=== PATIENT | female | born 1995 | race Caucasian/White ===

== ENCOUNTER 2017-12-23 14:02 | Emergency (ER) | payer MEDICAID, SELFPAY ==
[2017-12-23 14:03] VITALS: BP 130/78; PULSE 131; RESP 16; TEMP 36; O2SAT 99; BMI 24.5
[2017-12-23] MEDS: Ondansetron 4 MG/2 ML Vial IV (14:27)
[2017-12-23] MEDS: 0.9% Normal Saline 1,000 ML 1000 ML IV (14:28)
[2017-12-23 14:30] LABS: Absolute Neutrophil Count 5.3 X10^3/uL (2.0-7.7); Basophil# 0.04 X10^3/uL; Basophil% 0.5 % (0-1); Eosinophil# 0.01 X10^3/uL; Eosinophils% 0.1 % (0-5); Hemoglobin 15.3 g/dl (12.0-15.0); Mean Corp Hgb Conc 33.3 g/gl (32-36); Mean Corpuscular Hgb 29.4 pg (27.0-32.0); Mean Corpuscular Volume 88.3 fL (81-99); Mean Platelet Vol. 9.8 fl (6.2-12.0); Monocyte# 0.95 X10^3/uL; Monocyte% 12.5 % (0-10); Neutrophil % 69.5 % (47-70); POSITIVE COUNT NO; POSITIVE DIFFERENTIAL NO; POSITIVE MORPHOLOGY NO; Platelet Count 379 K/mm3 (150-450); RBC Distribution Width CV 13.1 % (11.6-14.6); RBC Distribution Width SD 42.4 fl (35.1-43.9); Red Blood Count 5.21 M/mm3 (4.2-5.4); White Blood Count 7.6 K/mm3 (4.4-11.0)
--- NOTE | 2017-12-23 14:32 | ED.VISSUMM ---
- ER Visit Summary Date of Service: 12/23/17 Chief Complaint: [] Vomiting IV drug use History of Present Illness: The patient is a 22 F [] given IV drug use she indicates she was sober than a week or 2 ago she did heroin again she states for the last 3 or 4 days she has had copious vomiting some diarrhea, she indicates it is not uncommon for her to develop vomiting diarrhea she does not feel that she is withdrawing as she has not had heroin for at least 2 weeks she is followed by the [address] [place] [address] she has been on Suboxone the past she denies any history of infection immunocompromised conditions or other disorders related to the heroin abuse other than recently she was told she had hep C and I explained to her that our therapies for hep C and she should obtain that through the [facility] where she seen he also has a history of hypokalemia and she has been on potassium supplements in the past Physical Examination: [] Heart rate is 130 she feels nauseated she is in no distress HEENT exam is unremarkable neck is supple lungs are tachycardic to 130 the abdomen soft nontender upper lower extremities unremarkable except she has multiple injection shot sites none of them are inflamed or show signs of active infection neurologically is awake moving all 4 again she denies abdominal pain Test Results: [] Emergency Department Course and Treatment: [] Screening labs IV fluids these are generally unremarkable see the reports she is taking p.o. fluids he received IV fluids her potassium was 2.3 she is taking oral potassium without difficulty she indicates she has a history of hypokalemia is much improved she has had no vomiting or diarrhea while she has been in the emergency department her heart rate is about 90 I explained all the test results to her she wants to go home she will be placed on Zofran potassium 20 mg once a day she will follow-up with her clinic, the [facility] detox clinic and return for change in symptoms bland diet force fluids avoid drug use, she clearly understands that persistent heroin abuse can lead to sudden Treatment Plan: [] Disposition: [] Home stable Impression: [] Vomiting resolved hypokalemia, history of IV drug use This note was generated with [employer] dictation software. It may contain incorrect words, spelling, and punctuation that were not noted in review of the chart prior to signing ED Disposition - Plan for ED Patient: Chief Complaint: Nausea/Vomiting Referrals: Susana Watkins [NON-STAFF] -
--- NOTE | 2017-12-23 14:35 | ED.DCSUM_ITS ---
- ER Visit Summary Date of Service: 12/23/17 Chief Complaint: [] Vomiting IV drug use History of Present Illness: The patient is a 22 F [] given IV drug use she indicates she was sober than a week or 2 ago she did heroin again she states for the last 3 or 4 days she has had copious vomiting some diarrhea, she indicates it is not uncommon for her to develop vomiting diarrhea she does not feel that she is withdrawing as she has not had heroin for at least 2 weeks she is followed by the [address] [place] [address] she has been on Suboxone the past she denies any history of infection immunocompromised conditions or other disorders related to the heroin abuse other than recently she was told she had hep C and I explained to her that our therapies for hep C and she should obtain that through the [facility] where she seen he also has a history of hypokalemia and she has been on potassium supplements in the past Physical Examination: [] Heart rate is 130 she feels nauseated she is in no distress HEENT exam is unremarkable neck is supple lungs are tachycardic to 130 the abdomen soft nontender upper lower extremities unremarkable except she has multiple injection shot sites none of them are inflamed or show signs of active infection neurologically is awake moving all 4 again she denies abdominal pain Test Results: [] Emergency Department Course and Treatment: [] Screening labs IV fluids these are generally unremarkable see the reports she is taking p.o. fluids he received IV fluids her potassium was 2.3 she is taking oral potassium without difficulty she indicates she has a history of hypokalemia is much improved she has had no vomiting or diarrhea while she has been in the emergency department her heart rate is about 90 I explained all the test results to her she wants to go home she will be placed on Zofran potassium 20 mg once a day she will follow- up with her clinic, the [facility] detox clinic and return for change in symptoms bland diet force fluids avoid drug use, she clearly understands that persistent heroin abuse can lead to sudden Treatment Plan: [] Disposition: [] Home stable Impression: [] Vomiting resolved hypokalemia, history of IV drug use This note was generated with [employer] dictation software. It may contain incorrect words, spelling, and punctuation that were not noted in review of the chart prior to signing ED Disposition - Plan for ED Patient: Chief Complaint: Nausea/Vomiting Referrals: Susana Watkins [NON-STAFF] -
[2017-12-23 14:49] LABS: Pregnancy, Serum, hCG Quali. NEGATIVE Negative (0-9 Nonpreg)
[2017-12-23 14:50] LABS: AST(SGOT) 59 U/L (15-37); Alanine Aminotransfer ALT/SGPT 65 U/L (13-56); Albumin, Serum 4.1 g/dL (3.2-5.0); Alkaline Phosphatase 76 U/L (45-117); Anion Gap 9 (5-15); BUN 9 mg/dL (7-18); BUN/Creat Ratio 10.9 RATIO (10-20); Bilirubin, Direct 0.35 mg/dL (0.00-0.30); Calcium,Total 9.7 mg/dL (8.5-10.1); Chloride 92 mmol/L (98-107); Creatinine, Serum 0.83 mg/dL (0.55-1.02); EST Glomerular Filtration Rate 91 mL/min (>60); Est Glom Filt Rate - Afr Amer 111 mL/min (>60); Estimated Creatinine Clearance 76.37 ml/min; Globulin 4.9 g/dL (2.2-4.2); Glucose 117 mg/dL (74-106); Lipase 125 U/L (73-393); Potassium 2.3 mmol/L (3.5-5.1); Sodium Level 135 mmol/L (136-145)
--- NOTE | 2017-12-23 14:50 | ED.RN ---
LAB CALLED POTASSIUM OF 2.3. DR MCDANIEL
--- NOTE | 2017-12-23 16:18 | ED.DEP ---
ED Disposition - Plan for ED Patient: Chief Complaint: Nausea/Vomiting Instructions: ED Nausea Vomiting Prescriptions: Ondansetron [Zofran Odt] 4 mg PO Q8H PRN PRN #10 tab PRN Reason: Nausea Potassium Chloride 20 meq PO DAILY #10 tab.er.prt Referrals: Susana Watkins [NON-STAFF] -
[2017-12-23 16:44] VITALS: BP 125/70; PULSE 102; RESP 14; O2SAT 99
== END 2017-12-23 16:45 | disposition home or self-care (01) ==
LOC: ED 15:11
PROVIDERS: Emergency Provider Emergency Medicine; Family Provider Nurse Practitioner Family; PCP Nurse Practitioner Family
DX: R11.10 Vomiting, unspecified (principal); R19.7 Diarrhea, unspecified; F19.90 Other psychoactive substance use, unspecified, uncomplicated; Z86.19 Personal history of other infectious and parasitic diseases
CPT/HCPCS: 80048; 80076; 83690; 84703; 85025; 96361; 96374; 99284; J7030; J2405

== ENCOUNTER 2018-04-18 14:18 | Inpatient (IN) | payer MEDICAID, SELFPAY ==
--- NOTE | 2018-04-18 14:51 | US_ITS ---
STUDY: SUPERFICIAL ULTRASOUND - ARM ULTRASOUND REASON FOR EXAM: Female, 22 years old. IV drug user, evaluate for abscess TECHNIQUE: A superficial ultrasound was performed with real-time and static lancaster-scale imaging. COMPARISON: None. FINDINGS: Targeted ultrasound in the area of concern demonstrates subcutaneous edema and swelling without evidence of abscess in the direct area of injection site. US/Ext Non Vasc Limited/Soft Tiss IMPRESSION: As above, likely cellulitis. No abscess. Electronically Signed: Yonatan Augustin DO at 18:27 EDT Tel , Service support ,
--- NOTE | 2018-04-18 14:53 | PCM.HP.STD ---
Problem List (1) Opiate withdrawal Status: Acute (2) UTI (urinary tract infection) Status: Acute (3) Abscess of left arm Status: Acute History of Present Illness Date of Admission: 04/18/18 Chief Complaint: opiate withdrawal. The patient is a 22 year old F who injects heroin since September. Patient as well as anteriorly seeking withdrawal treatment for heroin. Patient's last use was at 2300 on April 17. Since then, patient has been complaining of restless legs, abdominal cramps muscle aches and pains. [] Past Medical History Medical History: Medical History (Last Updated 04/18/18 @ 14:55 by Tian Torres DO) Bipolar disorder F31.9 Hypokalemia E87.6 Allergies codeine Allergy (Verified 12/23/17 14:06) Swelling fish derived Allergy (Verified 12/23/17 14:06) Swelling Iodinated Contrast- Oral and IV Dye [CONTRASTS] Allergy (Verified 12/23/17 14:06) Swelling shellfish derived Allergy (Verified 12/23/17 14:06) Swelling Home Medications: Ambulatory Orders Medication Instructions Recorded Ondansetron [Zofran Odt] 4 mg PO Q8H PRN PRN #10 tab 12/23/17 Potassium Chloride 20 meq PO DAILY #10 tab.er.prt 12/23/17 Psychiatric History: Bipolar Smoking Status: Heavy Smoker (>10/day) Tobacco Use: Cigarettes Alcohol: None Drugs: Heroin - *Family History Maternal History Items: No pertinent history Review of Systems Constitutional: Denies: Anorexia, Chills, Fever Eyes: Denies: Blurred vision, Double vision HEENT: Denies: Head Aches, Sinus Congestion, Sinus Drainage Cardiovascular: Denies: Chest Pain, Palpitations Respiratory: Denies: Cough, Shortness of breath at rest, Sputum production Gastrointestinal: Reports: - - abodminal cramps. Denies: Abdominal Pain, Nausea, Vomiting Genitourinary: Reports: Dysuria Musculoskeletal: Denies: Joint Pain, Joint Tenderness Skin: Reports: - - erythema and swelling on L forarm Neurological: Denies: Numbness, Tingling, Focal weakness Psychiatric: Denies: Anxiety, Depression Hematologic/ Lymphatic: Denies: Easy Bruising, Easy Bleeding, Hx of blood clot VTE Information - Inpt Only VTE Present on Admission: No VTE Mechan Device Prophylaxis: None VTE Pharm Prophylaxis ordered?: No Reason prophylaxis not ordered:: Procedure Not Indicated Patient Problems: Active and Suspected Problems (Last Updated 04/18/18 @ 14:55 by Tian Torres DO) Opiate withdrawal (Acute) UTI (urinary tract infection) (Acute) Abscess of left arm (Acute) - Physical Exam General: Alert, Cooperative, No apparent distress HEENT: Atraumatic, Normocephalic Oral: Moist Mucosa, No Gingival or Mucosal Lesions/ Ulcerations Neck: No Nodes, Thyroid Normal Size and Texture Lungs: Clear to auscultation, Normal air movement, No rhonchi, No wheeze Cardiovascular: Regular rate, Regular Rhythm, Normal S1, Normal S2 Abdomen: Bowel Sounds Present, Soft, Non Tender, Non-Distended, No Hepato-splenomegaly Extremities: No edema, No Calf Tenderness Skin: - - erythema and raised lesion on left upper extemity approximately 2 cm. fluctuant. no warmth. Musculoskeletal: No Tenderness to Palpation of Joints or Extremities, No Muscle Wasting Neurological: Neuro grossly intact, Sensory exam intact to light touch and pain, Coordination normal Psych/Mental Status: Appropriate, Flat Affect Assessment/Plan All Active Problems (Last Updated 04/18/18 @ 14:55 by Tian Torres DO) Opiate withdrawal (Acute) UTI (urinary tract infection) (Acute) Abscess of left arm (Acute) 1. Acute heroin withdrawal Last use was at 2300 Patient had an intake CINA score of 16 Patient will be initiated on the [facility] medical stabilization protocol with Subutex. Additionally, patient will be also on other medications for her other somatic complaints 2. UTI Self-reported. Patient recently just started on Bactrim but has been dealing with this for a month but was taking some [id number] medications and may have taken Pyridium as well. I do not feel that the treatment failure as patient was just recently started on antibiotics. I will check a urinalysis to see if there is been any improvement 3. Left upper extremity cellulitis and suspected abscess The area is fluctuant so does raise concern for this actually being an abscess Will check an ultrasound to see if there is an abscess or not If not then would continue with Bactrim but if an abscess is identified then would need to consult surgery for incision and drainage. Patient's sister and mother were present in the bedside. Patient gave permission to speak openly in front of them. Patient and family given opportunity to ask questions no questions were asked at this time. Code Visit Inpatient E&M: 53704 Init Hosp L3
--- NOTE | 2018-04-18 15:01 | HP.PCM_ITS ---
Problem List (1) Opiate withdrawal Status: Acute (2) UTI (urinary tract infection) Status: Acute (3) Abscess of left arm Status: Acute History of Present Illness Date of Admission: 04/18/18 Chief Complaint: opiate withdrawal. The patient is a 22 year old F who injects heroin since September. Patient as well as anteriorly seeking withdrawal treatment for heroin. Patient's last use was at 2300 on April 17. Since then, patient has been complaining of restless legs, abdominal cramps muscle aches and pains. [] Past Medical History Medical History: Medical History (Last Updated 04/18/18 @ 14:55 by Tian Torres DO) Bipolar disorder F31.9 Hypokalemia E87.6 Allergies codeine Allergy (Verified 12/23/17 14:06) Swelling fish derived Allergy (Verified 12/23/17 14:06) Swelling Iodinated Contrast- Oral and IV Dye [CONTRASTS] Allergy (Verified 12/23/17 14:06 ) Swelling shellfish derived Allergy (Verified 12/23/17 14:06) Swelling Home Medications: Ambulatory Orders Medication Instructions Recorded Ondansetron [Zofran Odt] 4 mg PO Q8H PRN PRN #10 tab 12/23/17 Potassium Chloride 20 meq PO DAILY #10 tab.er.prt 12/23/17 Psychiatric History: Bipolar Smoking Status: Heavy Smoker (>10/day) Tobacco Use: Cigarettes Alcohol: None Drugs: Heroin - *Family History Maternal History Items: No pertinent history Review of Systems Constitutional: Denies: Anorexia, Chills, Fever Eyes: Denies: Blurred vision, Double vision HEENT: Denies: Head Aches, Sinus Congestion, Sinus Drainage Cardiovascular: Denies: Chest Pain, Palpitations Respiratory: Denies: Cough, Shortness of breath at rest, Sputum production Gastrointestinal: Reports: - - abodminal cramps. Denies: Abdominal Pain, Nausea , Vomiting Genitourinary: Reports: Dysuria Musculoskeletal: Denies: Joint Pain, Joint Tenderness Skin: Reports: - - erythema and swelling on L forarm Neurological: Denies: Numbness, Tingling, Focal weakness Psychiatric: Denies: Anxiety, Depression Hematologic/ Lymphatic: Denies: Easy Bruising, Easy Bleeding, Hx of blood clot VTE Information - Inpt Only VTE Present on Admission: No VTE Mechan Device Prophylaxis: None VTE Pharm Prophylaxis ordered?: No Reason prophylaxis not ordered:: Procedure Not Indicated Patient Problems: Active and Suspected Problems (Last Updated 04/18/18 @ 14:55 by Tian Torres DO ) Opiate withdrawal (Acute) UTI (urinary tract infection) (Acute) Abscess of left arm (Acute) - Physical Exam General: Alert, Cooperative, No apparent distress HEENT: Atraumatic, Normocephalic Oral: Moist Mucosa, No Gingival or Mucosal Lesions/ Ulcerations Neck: No Nodes, Thyroid Normal Size and Texture Lungs: Clear to auscultation, Normal air movement, No rhonchi, No wheeze Cardiovascular: Regular rate, Regular Rhythm, Normal S1, Normal S2 Abdomen: Bowel Sounds Present, Soft, Non Tender, Non-Distended, No Hepato- splenomegaly Extremities: No edema, No Calf Tenderness Skin: - - erythema and raised lesion on left upper extemity approximately 2 cm. fluctuant. no warmth. Musculoskeletal: No Tenderness to Palpation of Joints or Extremities, No Muscle Wasting Neurological: Neuro grossly intact, Sensory exam intact to light touch and pain , Coordination normal Psych/Mental Status: Appropriate, Flat Affect Assessment/Plan All Active Problems (Last Updated 04/18/18 @ 14:55 by Tian Torres DO) Opiate withdrawal (Acute) UTI (urinary tract infection) (Acute) Abscess of left arm (Acute) 1. Acute heroin withdrawal * Last use was at 2300 * Patient had an intake CINA score of 16 * Patient will be initiated on the [facility] medical stabilization protocol with Subutex. Additionally, patient will be also on other medications for her other somatic complaints 2. UTI * Self-reported. Patient recently just started on Bactrim but has been dealing with this for a month but was taking some [id number] medications and may have taken Pyridium as well. I do not feel that the treatment failure as patient was just recently started on antibiotics. * I will check a urinalysis to see if there is been any improvement 3. Left upper extremity cellulitis and suspected abscess * The area is fluctuant so does raise concern for this actually being an abscess * Will check an ultrasound to see if there is an abscess or not * If not then would continue with Bactrim but if an abscess is identified then would need to consult surgery for incision and drainage. Patient's sister and mother were present in the bedside. Patient gave permission to speak openly in front of them. Patient and family given opportunity to ask questions no questions were asked at this time. Code Visit Inpatient E&M: 11536 Init Hosp L3
[2018-04-18 15:38] VITALS: BMI 20.7
[2018-04-18] MEDS: Pramipexole Di-HCl 0.25 MG Tablet PO (15:45)
[2018-04-18] MEDS: Dicyclomine 10 MG Capsule 20 MG PO (15:45)
[2018-04-18] MEDS: hydrOXYzine PAM 25 MG Capsule 50 MG PO ×2 (15:45→21:47)
[2018-04-18] MEDS: Methocarbamol 750 MG Tablet PO ×2 (15:46→21:47)
[2018-04-18 15:47] VITALS: BP 91/62; PULSE 90; RESP 16; TEMP 37.2; O2SAT 97
[2018-04-18] MEDS: Buprenorphine HCl 2 MG TAB.SUBL SL ×2 (15:47→23:26)
[2018-04-18 15:49] VITALS: BMI 20.7
[2018-04-18 17:39] LABS: Absolute Lymphocyte Count 1.65 X10^3/ul (0.83-4.51); Absolute Neutrophil Count 4.2 X10^3/uL (2.0-7.7); Basophil# 0.03 X10^3/uL; Basophil% 0.5 % (0-1); Eosinophil# 0.04 X10^3/uL; Eosinophils% 0.6 % (0-5); Hemoglobin 12.5 g/dl (12.0-15.0); Lymphocyte # 1.65 X10^3/ul (4.0); Lymphocyte % 26.2 % (19-41); Mean Corp Hgb Conc 32.1 g/gl (32-36); Mean Corpuscular Hgb 28.9 pg (27.0-32.0); Mean Corpuscular Volume 90.3 fL (81-99); Mean Platelet Vol. 8.6 fl (6.2-12.0); Monocyte# 0.39 X10^3/uL; Monocyte% 6.2 % (0-10); Neutrophil # 4.17 X10^3/uL (2.7-7.7); Neutrophil % 66.2 % (47-70); Platelet Count 549 K/mm3 (150-450); RBC Distribution Width CV 14.1 % (11.6-14.6); RBC Distribution Width SD 46.1 fl (35.1-43.9); Red Blood Count 4.32 M/mm3 (4.2-5.4); White Blood Count 6.3 K/mm3 (4.4-11.0)
[2018-04-18 17:45] LABS: POSITIVE COUNT NO; POSITIVE DIFFERENTIAL NO; POSITIVE MORPHOLOGY NO
[2018-04-18 18:08] LABS: ALB/GLOB Ratio 0.5 RATIO (0.9-2.4); AST(SGOT) 17 U/L (15-37); Alanine Aminotransfer ALT/SGPT 12 U/L (13-56); Albumin, Serum 2.9 g/dL (3.2-5.0); Alkaline Phosphatase 50 U/L (45-117); Anion Gap 8 (5-15); BUN 11 mg/dL (7-18); BUN/Creat Ratio 15.3 RATIO (10-20); Chloride 109 mmol/L (98-107); Creatinine, Serum 0.72 mg/dL (0.55-1.02); EST Glomerular Filtration Rate 107 mL/min (>60); Est Glom Filt Rate - Afr Amer 129 mL/min (>60); Estimated Creatinine Clearance 88.03 ml/min; Globulin 5.5 g/dL (2.2-4.2); Glucose 97 mg/dL (74-106); Potassium 4.1 mmol/L (3.5-5.1); Pregnancy, Serum, hCG Quali. NEGATIVE Negative (0-9 Nonpreg); Protein, Total 8.4 g/dL (6.4-8.2); Sodium Level 136 mmol/L (136-145)
[2018-04-18] MEDS: Smz/Tmp Ds Tablet 1 TABLET PO (19:16)
[2018-04-18 21:02] LABS: HIV - WCH Non-Reactive (Nonreactive)
[2018-04-18 21:40] VITALS: BP 98/66; PULSE 87; RESP 16; TEMP 37; O2SAT 99
[2018-04-18] MEDS: traZODone 50 MG Tablet PO (21:47)
[2018-04-18] MEDS: Ibuprofen 600 MG Tablet PO (21:47)
[2018-04-18] MEDS: Ondansetron ODT 4 MG Tablet PO (21:47)
[2018-04-18 23:15] LABS: Bacteria 0 SEEN /hpf (None Seen); Mucous, Urine 0 SEEN /hpf (<or=2+); Red Blood Cells-Urine 0 SEEN /hpf (0-5)
[2018-04-18 23:22] LABS: Color, Urine Yellow (Yellow); Glucose, Dipstick Normal (Normal); Ketone-Dipstick Negative (Negative); Leukocyte Esterase-Dipstick 100 /ul (Negative); Nitrite-Dipstick Negative (Negative); Occult Blood-Urine Negative /ul (Negative); Protein-Dipstick 15 mg/dl (Negative); Urine Bilirubin Dipstick Negative (Negative); Urine Clarity Cloudy (Clear); Urine Urobilinogen Normal (Normal)
[2018-04-18 23:25] LABS: Internal QC Validated? YES +Cl - CLEAR BKGD; Pregnancy, Urine Negative Negative
[2018-04-18 23:27] LABS: Amorphous Sediment 1+; Squamous Epithelial Cells - UA 0-5 SEEN /hpf (5-10); White Blood Cells 5-10 SEEN /hpf (0-5)
[2018-04-19 01:35] VITALS: BP 83/42; PULSE 73; RESP 16; TEMP 37.1
[2018-04-19] MEDS: Methocarbamol 750 MG Tablet PO ×3 (05:49→17:53)
[2018-04-19] MEDS: hydrOXYzine PAM 25 MG Capsule 50 MG PO ×3 (05:50→17:53)
[2018-04-19] MEDS: Pramipexole Di-HCl 0.25 MG Tablet PO ×2 (05:50→17:53)
[2018-04-19 06:00] VITALS: BP 82/42; PULSE 60; RESP 16; TEMP 36.7
[2018-04-19] MEDS: Buprenorphine HCl 2 MG TAB.SUBL SL ×4 (07:28→23:53)
--- NOTE | 2018-04-19 07:38 | PN_ITS ---
Patient Problems: Active and Suspected Problems (Last Updated 04/18/18 @ 14:55 by Tian Torres DO ) Opiate withdrawal (Acute) UTI (urinary tract infection) (Acute) Abscess of left arm (Acute) Subjective: Patient is a 22-year-old lady with history of heroine dependence who presented with acute opioid withdrawal. Patient in addition was found to have acute cellulitis as well as cystitis admitted to regular nursing floor for further management. Objective: GENERAL: cooperative HEENT: Clear conjunctiva, NECK; supple, normal thyroid, CHEST: Clear to auscultation bilaterally, HEART: Regular S1 S2, no audible murmurs ABDOMEN: soft, non-tender, normoactive bowel sounds, RECTAL: deferred EXTREMITIES: Erythema and swelling involving the left forearm [employer]: Awake; no lateralizing signs. SKIN: As described above Vitals/I&O's: Vital Signs Temp Pulse Resp BP Pulse Ox 98.1 F 60 16 82/42 L 99 04/19/18 06:00 04/19/18 06:00 04/19/18 06:00 04/19/18 06:00 04/18/18 21:40 Oxygen Delivery Method Room Air Weight: 48.1 kg Body Mass Index (BMI) 20.7 Intake and Output for Last 24 Hours 04/17/18 04/18/18 04/19/18 23:59 23:59 23:59 Intake Total 500 / 500 500 / 500 Balance 500 / 500 500 / 500 Laboratory Results 04/18/18 17:22: WBC 6.3, RBC 4.32, Hgb 12.5, Hct 39.0, MCV 90.3, MCH 28.9, MCHC 32.1, RDW 14.1, RDW Differential 46.1 H, Plt Count 549 H, MPV 8.6, Immature Gran % (Auto) 0.300, Neut % (Auto) 66.2, Lymph % (Auto) 26.2, Traill % (Auto) 6.2 , Eos % (Auto) 0.6, Baso % (Auto) 0.5, Absolute Neuts (auto) 4.2, Absolute Lymphs (auto) 1.65, Total Counted Not Reportable 04/18/18 17:22: Sodium 136, Potassium 4.1, Chloride 109 H, Carbon Dioxide 19.0 L , Anion Gap 8, BUN 11, Creatinine 0.72, Estim Creat Clear Calc 88.03, Est GFR ( MDRD) Af Amer 129, Est GFR (MDRD) Non-Af 107, BUN/Creatinine Ratio 15.3, Glucose 97, Calcium 9.0, Total Bilirubin 0.40, AST 17, ALT 12 L, Alkaline Phosphatase 50, Total Protein 8.4 H, Albumin 2.9 L, Globulin 5.5 H, Albumin/ Globulin Ratio 0.5 L 04/18/18 17:22: Serum , Qual NEGATIVE 04/18/18 17:30: HIV 1&2 Antibody Non-Reactive 04/18/18 22:25: Urine Test Negative 04/18/18 22:50: Urine Color Yellow, Urine Clarity Cloudy, Urine pH 7.0, Ur Specific [place] 1.010, Urine Protein 15 H, Urine Glucose (UA) Normal, Urine Ketones Negative, Urine Occult Blood Negative, Urine Nitrite Negative, Urine Bilirubin Negative, Urine Urobilinogen Normal, Ur Leukocyte Esterase 100 H, Urine RBC 0 SEEN, Urine WBC 5-10 SEEN, Ur Squamous Epith Cells 0-5 SEEN, Amorphous Sediment 1+, Urine Bacteria 0 SEEN, Urine Mucus 0 SEEN Current Medications Acetaminophen (Tylenol) 650 mg PO Q6H PRN PRN PRN Reason: Mild Pain (1-3)/Temp > 100.7 F Buprenorphine HCl (Buprenorphine Hcl) 4 mg SL Q8H DANIEL PRN Reason: Taper Stop: 04/21/18 19:29 Last Admin: 04/19/18 07:28 Dose: 4 mg Clonidine (Catapres) 0.1 mg PO Q2H PRN PRN PRN Reason: Hot/Cold Sweats or Anxiety Dicyclomine HCl (Bentyl) 20 mg PO Q6H PRN PRN PRN Reason: Abdomnial Discomfort Last Admin: 04/18/18 15:45 Dose: 20 mg Hydroxyzine Pamoate (Vistaril Pamoate Capsule) 50 mg PO Q6H PRN PRN PRN Reason: Mild Anxiety Last Admin: 04/19/18 05:50 Dose: 50 mg Ibuprofen (Motrin) 600 mg PO Q8H PRN PRN PRN Reason: Mild-Moderate Pain (1-5/10) Last Admin: 04/18/18 21:47 Dose: 600 mg Loperamide HCl (Imodium) 2 - 4 mg PO UD PRN PRN Reason: LOOSE STOOLS Magnesium Hydroxide (Milk Of Magnesia) 30 ml PO DAILY PRN PRN PRN Reason: Constipation Methocarbamol (Methocarbamol) 750 mg PO Q6H PRN PRN PRN Reason: Muscle Aches Last Admin: 04/19/18 05:49 Dose: 750 mg Nicotine (Nicoderm Cq (Pbkc)) 21 mg TRANSDERM. DAILY [facility] Last Admin: 04/18/18 16:02 Dose: 21 mg Nutritional Formula (Lactose Free) (Ensure Enlive) 120 ml PO 4X/DAY [facility] Last Admin: 04/18/18 21:18 Dose: Not Given Ondansetron HCl (Zofran Odt) 4 mg PO Q6H PRN PRN PRN Reason: NAUSEA Last Admin: 04/18/18 21:47 Dose: 4 mg Potassium Chloride (K-Dur) 20 meq PO DAILY [facility] Pramipexole Dihydrochloride (Mirapex) 0.25 mg PO Q12H PRN PRN PRN Reason: Restless Legs Last Admin: 04/19/18 05:50 Dose: 0.25 mg Senna (Senokot) 1 tablet PO QHS PRN PRN Reason: Constipation Trazodone HCl (Desyrel) 50 mg PO QHS [facility] Last Admin: 04/18/18 21:47 Dose: 50 mg Trimethoprim/Sulfamethoxazole (Bactrim Ds) 1 tablet PO BIDCM [facility] Last Admin: 04/18/18 19:16 Dose: 1 tablet Medical Necessity - Tobacco Use Smoking Status: Heavy Smoker (>10/day) Tobacco Use: Cigarettes Assessment/Plan All Active Problems (Last Updated 04/18/18 @ 14:55 by Tian Torres DO) Opiate withdrawal (Acute) UTI (urinary tract infection) (Acute) Abscess of left arm (Acute) Patient is a 22-year-old lady with history of heroine dependence who presented with acute opioid withdrawal. Patient in addition was found to have acute cellulitis as well as cystitis admitted to regular nursing floor for further management. 1. Acute opiate withdrawal patient has been admitted to regular nursing floor for medical stabilization using Subutex 2. Acute cystitis; treated with Bactrim 3. Left forearm cellulitis; On Bactrim 4. Tobacco dependence counseled on cessation, offered nicotine patch for tobacco cravings 5. DVT prophylaxis low risk did encourage early ambulation Active Medications Acetaminophen (Tylenol) 650 mg PO Q6H PRN PRN PRN Reason: Mild Pain (1-3)/Temp > 100.7 F Buprenorphine HCl (Buprenorphine Hcl) 4 mg SL Q8H DANIEL PRN Reason: Taper Stop: 04/21/18 19:29 Last Admin: 04/19/18 07:28 Dose: 4 mg Clonidine (Catapres) 0.1 mg PO Q2H PRN PRN PRN Reason: Hot/Cold Sweats or Anxiety Dicyclomine HCl (Bentyl) 20 mg PO Q6H PRN PRN PRN Reason: Abdomnial Discomfort Last Admin: 04/18/18 15:45 Dose: 20 mg Hydroxyzine Pamoate (Vistaril Pamoate Capsule) 50 mg PO Q6H PRN PRN PRN Reason: Mild Anxiety Last Admin: 04/19/18 05:50 Dose: 50 mg Ibuprofen (Motrin) 600 mg PO Q8H PRN PRN PRN Reason: Mild-Moderate Pain (1-5/10) Last Admin: 04/18/18 21:47 Dose: 600 mg Loperamide HCl (Imodium) 2 - 4 mg PO UD PRN PRN Reason: LOOSE STOOLS Magnesium Hydroxide (Milk Of Magnesia) 30 ml PO DAILY PRN PRN PRN Reason: Constipation Methocarbamol (Methocarbamol) 750 mg PO Q6H PRN PRN PRN Reason: Muscle Aches Last Admin: 04/19/18 05:49 Dose: 750 mg Nicotine (Nicoderm Cq (Pbkc)) 21 mg TRANSDERM. DAILY [facility] Last Admin: 04/18/18 16:02 Dose: 21 mg Nutritional Formula (Lactose Free) (Ensure Enlive) 120 ml PO 4X/DAY [facility] Last Admin: 04/18/18 21:18 Dose: Not Given Ondansetron HCl (Zofran Odt) 4 mg PO Q6H PRN PRN PRN Reason: NAUSEA Last Admin: 04/18/18 21:47 Dose: 4 mg Potassium Chloride (K-Dur) 20 meq PO DAILY [facility] Pramipexole Dihydrochloride (Mirapex) 0.25 mg PO Q12H PRN PRN PRN Reason: Restless Legs Last Admin: 04/19/18 05:50 Dose: 0.25 mg Senna (Senokot) 1 tablet PO QHS PRN PRN Reason: Constipation Trazodone HCl (Desyrel) 50 mg PO QHS [facility] Last Admin: 04/18/18 21:47 Dose: 50 mg Trimethoprim/Sulfamethoxazole (Bactrim Ds) 1 tablet PO [facility]IDMID [facility] Last Admin: 04/18/18 19:16 Dose: 1 tablet Code Visit Inpatient E&M: 52444 Subs Hosp L3
[2018-04-19 10:00] VITALS: BP 87/55; PULSE 72; RESP 16; TEMP 36.6; O2SAT 98
[2018-04-19] MEDS: Smz/Tmp Ds Tablet 1 TABLET PO ×2 (10:09→17:53)
[2018-04-19] MEDS: Ibuprofen 600 MG Tablet PO (10:20)
[2018-04-19 15:00] VITALS: BP 84/42; PULSE 77; RESP 16; TEMP 36.4
[2018-04-19 20:55] VITALS: BP 90/52; PULSE 82; PULSE 88; RESP 16; TEMP 36.7; O2SAT 100
[2018-04-19] MEDS: traZODone 50 MG Tablet PO (23:53)
[2018-04-20 06:15] VITALS: BP 90/59; PULSE 66; RESP 16; TEMP 36.6
[2018-04-20] MEDS: Buprenorphine HCl 2 MG TAB.SUBL SL ×2 (07:11→19:10)
--- NOTE | 2018-04-20 07:51 | PN_ITS ---
Patient Problems: Active and Suspected Problems (Last Updated 04/18/18 @ 14:55 by Tian Torres DO ) Opiate withdrawal (Acute) UTI (urinary tract infection) (Acute) Abscess of left arm (Acute) Subjective: Patient seen admit to some improvement in her overall condition. Abdominal pain is less intense. Objective: GENERAL: cooperative HEENT: Clear conjunctiva, NECK; supple, normal thyroid, CHEST: Clear to auscultation bilaterally, HEART: Regular S1 S2, no audible murmurs ABDOMEN: soft, non-tender, normoactive bowel sounds, RECTAL: deferred EXTREMITIES: Erythema and swelling involving the left forearm BOMB LOADER: Awake; no lateralizing signs. SKIN: As described above Vitals/I&O's: Vital Signs Temp Pulse Resp BP Pulse Ox 97.8 F 66 16 90/59 L 100 04/20/18 06:15 04/20/18 06:15 04/20/18 06:15 04/20/18 06:15 04/19/18 20:55 Oxygen Delivery Method Room Air Weight: 48.1 kg Body Mass Index (BMI) 20.7 Intake and Output for Last 24 Hours 04/18/18 04/19/18 04/20/18 23:59 23:59 23:59 Intake Total 500 / 500 500 / 500 Balance 500 / 500 500 / 500 Current Medications Acetaminophen (Tylenol) 650 mg PO Q6H PRN PRN PRN Reason: Mild Pain (1-3)/Temp > 100.7 F Buprenorphine HCl (Buprenorphine Hcl) 2 mg SL Q12H DANIEL PRN Reason: Taper Stop: 04/21/18 19:29 Last Admin: 04/20/18 07:11 Dose: 2 mg Clonidine (Catapres) 0.1 mg PO Q2H PRN PRN PRN Reason: Hot/Cold Sweats or Anxiety Dicyclomine HCl (Bentyl) 20 mg PO Q6H PRN PRN PRN Reason: Abdomnial Discomfort Last Admin: 04/18/18 15:45 Dose: 20 mg Hydroxyzine Pamoate (Vistaril Pamoate Capsule) 50 mg PO Q6H PRN PRN PRN Reason: Mild Anxiety Last Admin: 04/19/18 17:53 Dose: 50 mg Ibuprofen (Motrin) 600 mg PO Q8H PRN PRN PRN Reason: Mild-Moderate Pain (1-5/10) Last Admin: 04/19/18 10:20 Dose: 600 mg Loperamide HCl (Imodium) 2 - 4 mg PO UD PRN PRN Reason: LOOSE STOOLS Magnesium Hydroxide (Milk Of Magnesia) 30 ml PO DAILY PRN PRN PRN Reason: Constipation Methocarbamol (Methocarbamol) 750 mg PO Q6H PRN PRN PRN Reason: Muscle Aches Last Admin: 04/19/18 17:53 Dose: 750 mg Nicotine (Nicoderm Cq (Pbkc)) 21 mg TRANSDERM. DAILY [facility] Last Admin: 04/18/18 16:02 Dose: 21 mg Nutritional Formula (Lactose Free) (Ensure Enlive) 120 ml PO 4X/DAY [facility] Last Admin: 04/19/18 21:07 Dose: Not Given Ondansetron HCl (Zofran Odt) 4 mg PO Q6H PRN PRN PRN Reason: NAUSEA Last Admin: 04/18/18 21:47 Dose: 4 mg Potassium Chloride (K-Dur) 20 meq PO DAILY [facility] Last Admin: 04/19/18 10:09 Dose: 20 meq Pramipexole Dihydrochloride (Mirapex) 0.25 mg PO Q12H PRN PRN PRN Reason: Restless Legs Last Admin: 04/19/18 17:53 Dose: 0.25 mg Senna (Senokot) 1 tablet PO QHS PRN PRN Reason: Constipation Trazodone HCl (Desyrel) 50 mg PO QHS [facility] Last Admin: 04/19/18 23:53 Dose: 50 mg Trimethoprim/Sulfamethoxazole (Bactrim Ds) 1 tablet PO BIDCM [facility] Last Admin: 04/19/18 17:53 Dose: 1 tablet Medical Necessity - Tobacco Use Smoking Status: Heavy Smoker (>10/day) Tobacco Use: Cigarettes Assessment/Plan All Active Problems (Last Updated 04/18/18 @ 14:55 by Tian Torres DO) Opiate withdrawal (Acute) UTI (urinary tract infection) (Acute) Abscess of left arm (Acute) Patient is a 22-year-old lady with history of heroine dependence who presented with acute opioid withdrawal. Patient in addition was found to have acute cellulitis as well as cystitis admitted to regular nursing floor for further management. 1. Acute opiate withdrawal patient has been admitted to regular nursing floor for medical stabilization using Subutex 2. Acute cystitis; treated with Bactrim 3. Left forearm cellulitis; On Bactrim 4. Tobacco dependence counseled on cessation, offered nicotine patch for tobacco cravings 5. DVT prophylaxis low risk did encourage early ambulation Active Medications Acetaminophen (Tylenol) 650 mg PO Q6H PRN PRN PRN Reason: Mild Pain (1-3)/Temp > 100.7 F Buprenorphine HCl (Buprenorphine Hcl) 4 mg SL Q8H DANIEL PRN Reason: Taper Stop: 04/21/18 19:29 Last Admin: 04/19/18 07:28 Dose: 4 mg Clonidine (Catapres) 0.1 mg PO Q2H PRN PRN PRN Reason: Hot/Cold Sweats or Anxiety Dicyclomine HCl (Bentyl) 20 mg PO Q6H PRN PRN PRN Reason: Abdomnial Discomfort Last Admin: 04/18/18 15:45 Dose: 20 mg Hydroxyzine Pamoate (Vistaril Pamoate Capsule) 50 mg PO Q6H PRN PRN PRN Reason: Mild Anxiety Last Admin: 04/19/18 05:50 Dose: 50 mg Ibuprofen (Motrin) 600 mg PO Q8H PRN PRN PRN Reason: Mild-Moderate Pain (1-5/10) Last Admin: 04/18/18 21:47 Dose: 600 mg Loperamide HCl (Imodium) 2 - 4 mg PO UD PRN PRN Reason: LOOSE STOOLS Magnesium Hydroxide (Milk Of Magnesia) 30 ml PO DAILY PRN PRN PRN Reason: Constipation Methocarbamol (Methocarbamol) 750 mg PO Q6H PRN PRN PRN Reason: Muscle Aches Last Admin: 04/19/18 05:49 Dose: 750 mg Nicotine (Nicoderm Cq (Pbkc)) 21 mg TRANSDERM. DAILY [facility] Last Admin: 04/18/18 16:02 Dose: 21 mg Nutritional Formula (Lactose Free) (Ensure Enlive) 120 ml PO 4X/DAY [facility] Last Admin: 04/18/18 21:18 Dose: Not Given Ondansetron HCl (Zofran Odt) 4 mg PO Q6H PRN PRN PRN Reason: NAUSEA Last Admin: 04/18/18 21:47 Dose: 4 mg Potassium Chloride (K-Dur) 20 meq PO DAILY [facility] Pramipexole Dihydrochloride (Mirapex) 0.25 mg PO Q12H PRN PRN PRN Reason: Restless Legs Last Admin: 04/19/18 05:50 Dose: 0.25 mg Senna (Senokot) 1 tablet PO QHS PRN PRN Reason: Constipation Trazodone HCl (Desyrel) 50 mg PO QHS [facility] Last Admin: 04/18/18 21:47 Dose: 50 mg [facility]imethoprim[facility] Last Admin: 04/18/18 19:16 Dose: 1 tablet Code Visit Inpatient E&M: 05577 Subs Hosp L2
[2018-04-20 08:03] VITALS: BP 85/52; PULSE 55; RESP 16; TEMP 36.6; O2SAT 99
[2018-04-20] MEDS: hydrOXYzine PAM 25 MG Capsule 50 MG PO ×2 (08:15→20:59)
[2018-04-20] MEDS: Smz/Tmp Ds Tablet 1 TABLET PO ×2 (08:15→17:38)
[2018-04-20] MEDS: Methocarbamol 750 MG Tablet PO ×3 (08:15→20:59)
[2018-04-20] MEDS: Ondansetron ODT 4 MG Tablet PO (09:04)
[2018-04-20] MEDS: Pramipexole Di-HCl 0.25 MG Tablet PO (10:55)
[2018-04-20 14:32] VITALS: BP 90/60; PULSE 70; RESP 16; TEMP 36.7; O2SAT 98
[2018-04-20 20:57] VITALS: BP 99/69; PULSE 78; RESP 14; TEMP 36.9
[2018-04-20] MEDS: Acetaminophen 325 MG Tablet 650 MG PO (20:59)
[2018-04-20] MEDS: traZODone 50 MG Tablet PO (20:59)
[2018-04-21 01:46] VITALS: BP 103/61; PULSE 87; RESP 14; TEMP 36.6
[2018-04-21] MEDS: Pramipexole Di-HCl 0.25 MG Tablet PO (01:48)
[2018-04-21] MEDS: Ibuprofen 600 MG Tablet PO (01:48)
[2018-04-21] MEDS: Buprenorphine HCl 2 MG TAB.SUBL SL (06:53)
[2018-04-21] MEDS: Dicyclomine 10 MG Capsule 20 MG PO (06:56)
[2018-04-21] MEDS: Methocarbamol 750 MG Tablet PO (06:56)
[2018-04-21] MEDS: Ondansetron ODT 4 MG Tablet PO (06:56)
[2018-04-21 06:57] VITALS: BP 97/58; PULSE 73; RESP 12; TEMP 36.6
--- NOTE | 2018-04-21 07:22 | DCINST_ITS ---
- Discharge Diagnoses Current Active Problems: Current Active and Chronic Problems (Last Updated 04/18/18 @ 14:55 by Tian Torres DO) Opiate withdrawal (Acute) UTI (urinary tract infection) (Acute) Abscess of left arm (Acute) You will use the following diet at home:: No restrictions Allergies/Adverse Reactions: Allergies codeine Allergy (Verified 04/18/18 15:41) Swelling/difficulty breathing fish derived Allergy (Verified 04/18/18 15:41) Swelling/difficulty breathing Iodinated Contrast- Oral and IV Dye [CONTRASTS] Allergy (Verified 04/18/18 15:41 ) Swelling/difficulty breathing shellfish derived Allergy (Verified 04/18/18 15:41) Swelling/difficulty breathing Medications to take at Discharge Ondansetron [Zofran Odt] 4 mg PO Q8H PRN PRN #10 tab 12/23/17 Pramipexole Di-HCl [Mirapex] 0.25 mg PO Q12H PRN PRN #30 tab 04/21/18 The following prescriptions were given: Pramipexole Di-HCl [Mirapex] 0.25 mg PO Q12H PRN PRN #30 tab PRN Reason: Restless Legs Primary Care Physician: Belkys Vázquez, [employer]-C [Primary Care Provider] - Please follow up with your Primary Care Physician in: in 1-2 weeks Test Results: Test results from this visit will be discussed in further detail at your follow- up appointment, if applicable. Proposed Discharge Date: 04/21/18
--- NOTE | 2018-04-21 07:23 | DS.PCM_ITS ---
Discharge Date and Diagnosis - Problem List Patient Problems: Active and Suspected Problems (Last Updated 04/18/18 @ 14:55 by Tian Torres DO ) Opiate withdrawal (Acute) UTI (urinary tract infection) (Acute) Abscess of left arm (Acute) Date of Admission: 04/18/18 Date of Discharge: 04/21/18 - Primary Discharge Diagnosis Active and Suspected Problems (Last Updated 04/18/18 @ 14:55 by Tian Torres DO ) Opiate withdrawal (Acute) UTI (urinary tract infection) (Acute) Abscess of left arm (Acute) Hospital Course and Treatment Summary of Care Provided: Patient is a 22-year-old lady with history of heroine dependence who presented with acute opioid withdrawal. Patient in addition was found to have acute cellulitis as well as cystitis admitted to regular nursing floor for further management. 1. Acute opiate withdrawal patient has been admitted to regular nursing floor for medical stabilization using Subutex 2. Acute cystitis; treated with Bactrim 3. Left forearm cellulitis; On Bactrim 4. Tobacco dependence counseled on cessation, offered nicotine patch for tobacco cravings 5. DVT prophylaxis low risk did encourage early ambulation Discharge Diet: No Restrictions Discharge Activity: Return to Normal Activity, May not drive while taking narcotic pain medications. Home Medications: Medications to take at Discharge Ondansetron [Zofran Odt] 4 mg PO Q8H PRN PRN #10 tab 12/23/17 Pramipexole Di-HCl [Mirapex] 0.25 mg PO Q12H PRN PRN #30 tab 04/21/18 Smz/Tmp Ds [Bactrim Ds] 1 tab PO BIDCM #10 tab 04/21/18 Following Prescrptions Were Given to Patient: Pramipexole Di-HCl [Mirapex] 0.25 mg PO Q12H PRN PRN #30 tab PRN Reason: Restless Legs Smz/Tmp Ds [Bactrim Ds] 1 tab PO BIDCM #10 tab Primary Care Physician: Belkys Vázquez NP-C [Primary Care Provider] - Please follow up with your Primary Care Physician in: in 1-2 weeks Disposition: Home Minutes spent on discharge:: 35 Patient Condition:: Stable Medical Necessity - Tobacco Use Smoking Status: Heavy Smoker (>10/day) Tobacco Use: Cigarettes Meaningful Use Info Meaningful Use Diagnoses (Choose all that apply): None applicable Code Visit Inpatient E&M: 92964 Disch Hosp
[2018-04-21] MEDS: Smz/Tmp Ds Tablet 1 TABLET PO (08:49)
[2018-04-21] MEDS: hydrOXYzine PAM 25 MG Capsule 50 MG PO (08:51)
== END 2018-04-21 11:40 | disposition home or self-care (01) | DRG 434 ==
PROVIDERS: Family Provider Nurse Practitioner Family; PCP Nurse Practitioner Family; Visit Provider Internal Medicine
DX: F11.23 Opioid dependence with withdrawal (principal); N30.00 Acute cystitis without hematuria; L03.114 Cellulitis of left upper limb; B19.20 Unspecified viral hepatitis C without hepatic coma; F17.210 Nicotine dependence, cigarettes, uncomplicated
CPT/HCPCS: 76882; 80053; 81001; 81025; 84703; 85025; 86703; 97802

== ENCOUNTER 2018-10-17 15:47 | Observation (INO) | payer MEDICAID, SELFPAY ==
[2018-10-17 15:59] VITALS: BMI 18.6
[2018-10-17 16:04] VITALS: BMI 18.6
[2018-10-17 16:21] LABS: Absolute Lymphocyte Count 1.84 X10^3/ul (0.83-4.51); Absolute Neutrophil Count 4.4 X10^3/uL (2.0-7.7); Basophil# 0.02 X10^3/uL; Basophil% 0.3 % (0-1); Eosinophils% 1.5 % (0-5); Hematocrit 40.2 % (37-47); Hemoglobin 12.4 g/dl (12.0-15.0); Lymphocyte # 1.84 X10^3/ul (4.0); Mean Corp Hgb Conc 30.8 g/gl (32-36); Mean Corpuscular Hgb 27.4 pg (27.0-32.0); Mean Corpuscular Volume 88.9 fL (81-99); Mean Platelet Vol. 8.7 fl (6.2-12.0); Monocyte# 0.19 X10^3/uL; Monocyte% 2.9 % (0-10); Neutrophil # 4.42 X10^3/uL (2.7-7.7); Neutrophil % 67.1 % (47-70); Platelet Count 478 K/mm3 (150-450); RBC Distribution Width CV 14.8 % (11.6-14.6); RBC Distribution Width SD 48.2 fl (35.1-43.9); Red Blood Count 4.52 M/mm3 (4.2-5.4); White Blood Count 6.6 K/mm3 (4.4-11.0)
[2018-10-17 16:28] LABS: POSITIVE COUNT NO; POSITIVE DIFFERENTIAL NO; POSITIVE MORPHOLOGY NO
--- NOTE | 2018-10-17 16:28 | PCM.HP.STD ---
Problem List (1) Drug abuse Status: Chronic (2) Depression Status: Chronic (3) Hepatitis C Status: Chronic (4) Opiate withdrawal Status: Acute History of Present Illness Date of Admission: 10/17/18 Chief Complaint: Acute opioid withdrawal. The patient is a 23 year old F with past medical history as mentioned above presented to the [facility] office requesting admission for acute opiate withdrawal for medical stabilization. Patient was admitted back in April, for the same reason and she stayed without drug use for the last 6 months until the beginning of last month when she started using IV heroin with her boyfriend. She has been using IV heroin daily since around the beginning of September,. Her presenting symptoms are generalized body aches, dull aching pain, 3-4 out of 10 in severity, not radiating, associated with runny nose, cold and hot sweats as well as abdominal discomfort. She reported associated restlessness. She denied abdominal pain, nausea, vomiting, constipation or diarrhea. Her vital signs are stable. Her routine blood work was unremarkable. Her LFT was normal. Serum test was negative. She is being admitted for acute opiate withdrawal for medical stabilization. Past Medical History Past Medical History (Chronic Problems): Chronic Problems (Last Updated 04/18/18 @ 14:55 by Tian Torres DO) Drug abuse (Chronic) Depression (Chronic) Hepatitis C (Chronic) Medical History: Medical History (Last Updated 04/18/18 @ 14:55 by Tian Torres DO) Bipolar disorder F31.9 Hypokalemia E87.6 Allergies codeine Allergy (Verified 04/18/18 15:41) Swelling/difficulty breathing fish derived Allergy (Verified 04/18/18 15:41) Swelling/difficulty breathing Iodinated Contrast- Oral and IV Dye [CONTRASTS] Allergy (Verified 04/18/18 15:41) Swelling/difficulty breathing shellfish derived Allergy (Verified 04/18/18 15:41) Swelling/difficulty breathing Home Medications: Ambulatory Orders Medication Instructions Recorded NK 10/17/18 Surgical History: cholecystectomy, tonsillectomy, - - Tubal ligation. Psychiatric History: Depression Lives: With Family Smoking Status: Current every day smoker Tobacco Use: Cigarettes Alcohol: None Drugs: Heroin - *Family History Maternal History Items: No pertinent history Paternal History Items: Diabetes, Hypertension Review of Systems Constitutional: Reports: Anorexia. Denies: Chills, Fever, Weakness Eyes: Denies: Blurred vision, Double vision, Drainage, Redness HEENT: Denies: Difficulty Hearing, Ear Pain, Eye Pain, Nasal Congestion, Sore Throat Cardiovascular: Denies: Chest Pain, Chest Pressure, Chest Tightness, Heaviness, Light Headedness, Palpitations, Syncope Respiratory: Denies: Cough, Pleuritic Pain, Shortness of Breath, Sputum production, Wheezing Gastrointestinal: Reports: Abdominal Pain. Denies: Constipation, Diarrhea, Nausea, Vomiting Genitourinary: Denies: Dysuria, Frequency, Hematuria Musculoskeletal: Reports: Muscle pain. Denies: Arm Pain, Back Pain, Foot Pain Skin: Denies: Dryness, Rash Neurological: Denies: Balance problems, Double vision, Change in Speech, Slurred speech, Confusion, Incoordination, Numbness Psychiatric: Reports: Depression. Denies: Anxiety Endocrine: Denies: Change in Body Habitus, Polydipsia VTE Information - Inpt Only VTE Present on Admission: No VTE Mechan Device Prophylaxis: None VTE Pharm Prophylaxis ordered?: No - Physical Exam General: Alert, Oriented x3, Cooperative, No apparent distress HEENT: Atraumatic, EOMI, Normocephalic Oral: Moist Mucosa, No Gingival or Mucosal Lesions/ Ulcerations Neck: Supple, No JVD, Negative Carotid Bruits, Trachea Midline, Thyroid Normal Size and Texture Lungs: Clear to auscultation, Normal air movement, No rhonchi, No wheeze, No rales Cardiovascular: Regular rate, Regular Rhythm, Normal S1, Normal S2, No murmurs, PMI Normal Abdomen: Bowel Sounds Present, Soft, Non Tender, Non-Distended, No Hepato-splenomegaly Extremities: No clubbing, No cyanosis, No edema Skin: No rashes, No breakdown Lymphatic: No Cervical, Supraclavicular, or Inguinal Adenopathy Neurological: Cranial nerves II-XII grossly intact, Motor Exam 5/5 strength throughout Psych/Mental Status: Normal Affect, Appropriate, Alert and oriented to time, place, person, mood and affect Weight: 95 lb 6.4 oz Body Mass Index (BMI) 18.6 Laboratory Tests Past 24 Hrs 10/17/18 10/17/18 10/17/18 16:10 16:10 16:10 WBC Pending RBC Pending Hgb Pending Hct Pending MCV Pending MCH Pending MCHC Pending RDW Pending RDW Differential Pending Plt Count Pending Neut % (Auto) Pending Absolute Neuts (auto) Pending Total Counted Pending Sodium Pending Potassium Pending Chloride Pending Carbon Dioxide Pending Anion Gap Pending BUN Pending Creatinine Pending Est GFR (MDRD) Af Amer Pending Est GFR (MDRD) Non-Af Pending BUN/Creatinine Ratio Pending Glucose Pending Calcium Pending Total Bilirubin Pending AST Pending ALT Pending Alkaline Phosphatase Pending Total Protein Pending Albumin Pending Serum , Qual Ethyl Alcohol Pending 10/17/18 16:10 WBC RBC Hgb Hct MCV MCH MCHC RDW RDW Differential Plt Count Neut % (Auto) Absolute Neuts (auto) Total Counted Sodium Potassium Chloride Carbon Dioxide Anion Gap BUN Creatinine Est GFR (MDRD) Af Amer Est GFR (MDRD) Non-Af BUN/Creatinine Ratio Glucose Calcium Total Bilirubin AST ALT Alkaline Phosphatase Total Protein Albumin Serum , Qual Pending Ethyl Alcohol Assessment/Plan All Active Problems (Last Updated 04/18/18 @ 14:55 by Tian Torres DO) Opiate withdrawal (Acute) This is a 23 years old female patient presented to the [facility] office requesting admission for acute opioid withdrawal for medical stabilization. #1 acute opioid withdrawal: Patient has been using IV heroin over the last month. She was admitted back in April, for detox and she relapsed last month and she attributed to being with her boyfriend was using drugs. Last use of IV heroin was yesterday. At this time, vital signs are stable. Her routine blood work was unremarkable. LFT was normal. Serum (was negative. [facility], [facility] diet, initiate [facility] protocol with tapering course of Subutex, as needed Catapres, Bentyl, Vistaril, methocarbamol, Mirapex and trazodone, blood alcohol level, urine drug screen. #2 hepatitis C: Never been treated for it. LFT is normal. Recommend follow-up with infectious disease as outpatient. #3 depression: Stable, continue Cymbalta. #4 tobacco abuse: NicoDerm patch daily. #5 DVT prophylaxis: Low-risk patient, no prophylaxis indicated, ambulate. This note was generated with [employer]antrange[employer] software. It may contain incorrect words, spelling, and punctuation that were not noted in checking the note before signing. Code Visit Inpatient E&M: 38469 Init Hosp L2
[2018-10-17 16:29] VITALS: BP 94/62; PULSE 81; RESP 16; TEMP 37.1; O2SAT 94
[2018-10-17 16:50] LABS: Pregnancy, Serum, hCG Quali. NEGATIVE Negative (0-9 Nonpreg)
[2018-10-17] MEDS: Pramipexole Di-HCl 0.25 MG Tablet PO (16:52)
[2018-10-17] MEDS: Buprenorphine HCl 2 MG TAB.SUBL SL (16:52)
[2018-10-17 16:55] LABS: ALB/GLOB Ratio 0.7 RATIO (0.9-2.4); AST(SGOT) 8 U/L (15-37); Alanine Aminotransfer ALT/SGPT 10 U/L (13-56); Albumin, Serum 3.5 g/dL (3.2-5.0); Alkaline Phosphatase 66 U/L (45-117); Anion Gap 9 (5-15); BUN 11 mg/dL (7-18); BUN/Creat Ratio 17.9 RATIO (10-20); Calcium,Total 9.2 mg/dL (8.5-10.1); Chloride 106 mmol/L (98-107); Creatinine, Serum 0.62 mg/dL (0.55-1.02); EST Glomerular Filtration Rate 127 mL/min (>60); Est Glom Filt Rate - Afr Amer 154 mL/min (>60); Globulin 4.7 g/dL (2.2-4.2); Glucose 100 mg/dL (74-106); Potassium 4.4 mmol/L (3.5-5.1); Protein, Total 8.2 g/dL (6.4-8.2); Sodium Level 139 mmol/L (136-145)
[2018-10-17] MEDS: Methocarbamol 750 MG Tablet PO (18:47)
[2018-10-17] MEDS: cloNIDine HCl 0.1 MG Tablet PO ×2 (18:47→22:12)
[2018-10-17 22:04] VITALS: BP 103/61; PULSE 87; RESP 16; TEMP 36.8; O2SAT 98
[2018-10-17] MEDS: traZODone 50 MG Tablet PO (22:12)
[2018-10-17] MEDS: Dicyclomine 10 MG Capsule 20 MG PO (22:12)
[2018-10-17] MEDS: Acetaminophen 500 MG Tablet PO (22:12)
[2018-10-17] MEDS: hydrOXYzine PAM 25 MG Capsule 50 MG PO (22:12)
[2018-10-18] MEDS: Methocarbamol 750 MG Tablet PO ×4 (01:04→23:57)
[2018-10-18] MEDS: Buprenorphine HCl 2 MG TAB.SUBL SL ×4 (01:04→23:57)
[2018-10-18 05:22] VITALS: BP 82/48; PULSE 58; RESP 14; TEMP 36.7; O2SAT 97
[2018-10-18] MEDS: hydrOXYzine PAM 25 MG Capsule 50 MG PO ×2 (09:25→21:23)
[2018-10-18 09:39] VITALS: BP 97/58; PULSE 67; RESP 16; TEMP 37.1
[2018-10-18] MEDS: Dicyclomine 10 MG Capsule 20 MG PO (12:06)
[2018-10-18] MEDS: Pramipexole Di-HCl 0.25 MG Tablet PO ×2 (12:06→23:57)
--- NOTE | 2018-10-18 12:40 | PCM.PROGNOTE ---
Subjective: Pt requests nicotine patch. C/o ongoing but improved aching stomach, legs, nausea, diarrhea. No change at injection sites. - Physical Exam General: Alert, Oriented x3, Cooperative HEENT: Atraumatic, PERRLA, EOMI, Normocephalic Neck: Supple, No JVD, Negative Carotid Bruits Lungs: Clear to auscultation, Normal air movement Cardiovascular: Regular rate, No murmurs Abdomen: Bowel Sounds Present, Soft, Non Tender Extremities: No edema, Capillary Refill Less than 3 Seconds Skin: No rashes, No breakdown Musculoskeletal: No Tenderness to Palpation of Joints or Extremities Neurological: Cranial nerves II-XII grossly intact Psych/Mental Status: Normal Affect, Appropriate, Alert and oriented to time, place, person, mood and affect Vital Signs Temp Pulse Resp BP Pulse Ox 98.8 F 67 16 97/58 L 97 10/18/18 09:39 10/18/18 09:39 10/18/18 09:39 10/18/18 09:39 10/18/18 05:22 Oxygen Delivery Method Room Air Weight: 95 lb 6.4 oz Body Mass Index (BMI) 18.6 Intake and Output for Last 24 Hours 10/16/18 10/17/18 10/18/18 23:59 23:59 23:59 Intake Total 880 / 880 Balance 880 / 880 Laboratory Tests Past 24 Hrs 10/17/18 10/17/18 10/17/18 16:10 16:10 16:10 WBC 6.6 RBC 4.52 Hgb 12.4 Hct 40.2 MCV 88.9 MCH 27.4 MCHC 30.8 L RDW 14.8 H RDW Differential 48.2 H Plt Count 478 H MPV 8.7 Immature Gran % (Auto) 0.200 Neut % (Auto) 67.1 Lymph % (Auto) 28.0 [place] % (Auto) 2.9 Eos % (Auto) 1.5 Baso % (Auto) 0.3 Absolute Neuts (auto) 4.4 Absolute Lymphs (auto) 1.84 Total Counted Not Reportable Sodium 139 Potassium 4.4 Chloride 106 Carbon Dioxide 24.0 Anion Gap 9 BUN 11 Creatinine 0.62 Estim Creat Clear Calc 96.40 Est GFR (MDRD) Af Amer 154 Est GFR (MDRD) Non-Af 127 BUN/Creatinine Ratio 17.9 Glucose 100 Calcium 9.2 Total Bilirubin 0.20 AST 8 L ALT 10 L Alkaline Phosphatase 66 Total Protein 8.2 Albumin 3.5 Globulin 4.7 H Albumin/Globulin Ratio 0.7 L Serum , Qual Ethyl Alcohol 7.0 10/17/18 16:10 WBC RBC Hgb Hct MCV MCH MCHC RDW RDW Differential Plt Count MPV Immature Gran % (Auto) Neut % (Auto) Lymph % (Auto) [place] % (Auto) Eos % (Auto) Baso % (Auto) Absolute Neuts (auto) Absolute Lymphs (auto) Total Counted Sodium Potassium Chloride Carbon Dioxide Anion Gap BUN Creatinine Estim Creat Clear Calc Est GFR (MDRD) Af Amer Est GFR (MDRD) Non-Af BUN/Creatinine Ratio Glucose Calcium Total Bilirubin AST ALT Alkaline Phosphatase Total Protein Albumin Globulin Albumin/Globulin Ratio Serum , Qual NEGATIVE Ethyl Alcohol Medical Necessity - Tobacco Use Smoking Status: Current every day smoker Tobacco Use: Cigarettes Assessment/Plan All Active Problems (Last Updated 04/18/18 @ 14:55 by Tian Torres DO) Opiate withdrawal (Acute) 1. Acute opiate withdrawal - continue withdrawal protocol. Current sx include aching legs, stomach, nausea and diarrhea. 2. Nicotine abuse - patch 3. Hep C - LFTs normal. Never treated 4. Depression - not on home medications. DVT ppx: early ambulation Medical stabilization day 2 of 4. This patient was seen by Dontrell Paniagua PA-C under the supervision of Doctor Herbert.
[2018-10-18 17:03] VITALS: BP 99/65; PULSE 104; RESP 16; TEMP 37.1
[2018-10-18] MEDS: cloNIDine HCl 0.1 MG Tablet PO (17:04)
[2018-10-18 17:52] LABS: Amphetamine Urine VISTA NEGATIVE (<1000 ng/mL); Barbiturate Urine VISTA NEGATIVE (< 200 ng/mL); Benzodiazepine Urine VISTA NEGATIVE (< 200 ng/mL); Cocaine Urine VISTA NEGATIVE (< 300 ng/mL); Ecstacy Urine VISTA POSITIVE (< 500 ng/mL); Methadone Urine VISTA NEGATIVE (< 300 ng/mL); PCP Urine VISTA NEGATIVE (< 25 ng/mL); THC Urine VISTA NEGATIVE (< 50 ng/mL); Vista UDS pH Range 7
[2018-10-18 21:14] VITALS: BP 95/54; PULSE 80; RESP 16; TEMP 36.8
[2018-10-18] MEDS: traZODone 50 MG Tablet PO (21:23)
[2018-10-18] MEDS: Acetaminophen 500 MG Tablet PO (21:23)
[2018-10-18 23:54] VITALS: BP 94/50; PULSE 77; RESP 16; TEMP 36.9
[2018-10-19 08:42] VITALS: BP 82/45; PULSE 71; RESP 16; TEMP 36.8
[2018-10-19] MEDS: Buprenorphine HCl 2 MG TAB.SUBL SL ×2 (08:45→20:12)
[2018-10-19] MEDS: hydrOXYzine PAM 25 MG Capsule 50 MG PO ×2 (08:45→17:57)
[2018-10-19] MEDS: Methocarbamol 750 MG Tablet PO ×2 (08:46→17:57)
[2018-10-19 08:47] VITALS: BP 93/53; O2SAT 96
--- NOTE | 2018-10-19 13:28 | PCM.PROGNOTE ---
Subjective: Pts only complaint today is shakiness in her arms. Her other symptoms from yesterday resolved. - Physical Exam General: Alert, Oriented x3, Cooperative HEENT: Atraumatic, PERRLA, EOMI, Normocephalic Neck: Supple, No JVD, Negative Carotid Bruits Lungs: Clear to auscultation, Normal air movement Cardiovascular: Regular rate, No murmurs Abdomen: Bowel Sounds Present, Soft, Non Tender Extremities: No edema, Capillary Refill Less than 3 Seconds Skin: No rashes, No breakdown Musculoskeletal: No Tenderness to Palpation of Joints or Extremities Neurological: Cranial nerves II-XII grossly intact Psych/Mental Status: Normal Affect, Appropriate, Alert and oriented to time, place, person, mood and affect Vital Signs Temp Pulse Resp BP Pulse Ox 98.3 F 71 16 93/53 L 96 10/19/18 08:42 10/19/18 08:42 10/19/18 08:42 10/19/18 08:47 10/19/18 08:47 Oxygen Delivery Method Room Air Weight: 95 lb 6.4 oz Body Mass Index (BMI) 18.6 Intake and Output for Last 24 Hours 10/17/18 10/18/18 10/19/18 23:59 23:59 23:59 Intake Total 1420 / 1420 Balance 1420 / 1420 Laboratory Tests Past 24 Hrs 10/18/18 17:00 Urine Opiates Screen POSITIVE H Urine Methadone Screen NEGATIVE Ur Barbiturates Screen NEGATIVE Ur Phencyclidine Scrn NEGATIVE Ur Amphetamines Screen NEGATIVE U Methamphetamin-MDMA POSITIVE H U Benzodiazepines Scrn NEGATIVE Urine Cocaine Screen NEGATIVE U Cannabinoids Screen NEGATIVE Ur Drug Screen Comment Medical Necessity - Tobacco Use Smoking Status: Current every day smoker Tobacco Use: Cigarettes Assessment/Plan All Active Problems (Last Updated 04/18/18 @ 14:55 by Tian Torres DO) Opiate withdrawal (Acute) 1. Acute opiate withdrawal - continue withdrawal protocol. Current sx include shakiness 2. Nicotine abuse - patch 3. Hep C - LFTs normal. Never treated 4. Depression - not on home medications. DVT ppx: early ambulation Medical stabilization day 3 of 4. This patient was seen by Dontrell Paniagua PA-C under the supervision of Doctor Piedad.
[2018-10-19 14:30] VITALS: BP 104/58; PULSE 91; RESP 16; TEMP 36.4
[2018-10-19] MEDS: Pramipexole Di-HCl 0.25 MG Tablet PO (14:31)
[2018-10-19] MEDS: cloNIDine HCl 0.1 MG Tablet PO (14:31)
[2018-10-19 20:10] VITALS: BP 88/44; PULSE 88; RESP 16; TEMP 36.8
[2018-10-19] MEDS: traZODone 50 MG Tablet PO (22:04)
[2018-10-20 00:26] VITALS: BP 90/48; PULSE 77; RESP 16; TEMP 36.8
[2018-10-20] MEDS: hydrOXYzine PAM 25 MG Capsule 50 MG PO (00:28)
[2018-10-20] MEDS: Methocarbamol 750 MG Tablet PO (00:29)
[2018-10-20] MEDS: Buprenorphine HCl 2 MG TAB.SUBL SL (08:59)
[2018-10-20 09:01] VITALS: BP 101/60; PULSE 79; RESP 16; TEMP 36.4
--- NOTE | 2018-10-20 09:36 | PCM.DC ---
- Discharge Diagnoses Current Active Problems: Current Active and Chronic Problems (Last Updated 04/18/18 @ 14:55 by Tian Torres DO) Drug abuse (Chronic) Depression (Chronic) Hepatitis C (Chronic) Reason(s) for Visit for Discharge Instructions: Acute opiate withdrawal You will use the following diet at home:: Regular Your food should be the consistency of: Regular Your liquids should be the consistency of: Regular/Thin Discharge Activity: Return to Normal Activity Additional Instructions: You have been advised to quit using illicit drugs and smoking. Follow-up with your outpatient program as planned. Allergies/Adverse Reactions: Allergies codeine Allergy (Verified 04/18/18 15:41) Swelling/difficulty breathing fish derived Allergy (Verified 04/18/18 15:41) Swelling/difficulty breathing Iodinated Contrast- Oral and IV Dye [CONTRASTS] Allergy (Verified 04/18/18 15:41) Swelling/difficulty breathing shellfish derived Allergy (Verified 04/18/18 15:41) Swelling/difficulty breathing Medications to take at Discharge NK 10/17/18 Primary Care Physician: Belkys Vázquez, [employer]-C [Primary Care Provider] - Test Results: Test results from this visit will be discussed in further detail at your follow-up appointment, if applicable. When: Dr Harish Spence within 2 weeks of discharge Proposed Discharge Date: 10/20/18
--- NOTE | 2018-10-20 09:39 | DS.PCM_ITS ---
Discharge Date and Diagnosis Date of Admission: 10/17/18 Date of Discharge: 10/20/18 - Primary Discharge Diagnosis Acute opiate withdrawal Nicotine dependence Chronic hepatitis C Depression - Secondary Discharge Diagnosis Chronic Problems (Last Updated 04/18/18 @ 14:55 by Tian Torres DO) Drug abuse (Chronic) Depression (Chronic) Hepatitis C (Chronic) Hospital Course and Treatment None Operations: None Procedures: None Summary of Care Provided: The patient is a 23 year old F with past medical history of polysubstance use, depression, chronic hepatitis C who was admitted with acute opiate withdrawal for medical stabilization and [facility] program. Patient admits to using IV heroine and had presented with generalized body aches, runny nose, cold and hot sweats as well as abdominal discomfort and restlessness. She was managed on a [facility] protocol with improvement and no adverse events. She was discharged with plans to follow-up in the outpatient. Subjective: Patient was seen and examined. No new complaints. Feels improved. Eager to be discharged. Acute events overnight. Denies any fever or chills or restlessness or shortness of breath. - Physical Exam General: Alert, Oriented x3, Cooperative, No apparent distress HEENT: Atraumatic, PERRLA, EOMI, Normocephalic Oral: Moist Mucosa Neck: Supple, No JVD, Negative Carotid Bruits Lungs: Clear to auscultation, Normal air movement Cardiovascular: Regular rate, Regular Rhythm, Normal S1, Normal S2, No murmurs Abdomen: Bowel Sounds Present, Soft, Non Tender, Non-Distended, No Hepato- splenomegaly Extremities: No edema Skin: No rashes, No breakdown Musculoskeletal: No Tenderness to Palpation of Joints or Extremities Lymphatic: No Cervical, Supraclavicular, or Inguinal Adenopathy Neurological: Cranial nerves II-XII grossly intact, Neuro grossly intact Psych/Mental Status: Normal Affect, Appropriate Vital Signs Temp Pulse Resp BP Pulse Ox 97.5 F L 79 16 101/60 96 10/20/18 09:01 10/20/18 09:01 10/20/18 09:01 10/20/18 09:01 10/19/18 08:47 Oxygen Delivery Method Room Air Weight: 43.273 kg Body Mass Index (BMI) 18.6 Intake and Output for Last 24 Hours 10/18/18 10/19/18 10/20/18 23:59 23:59 23:59 Intake Total 1420 / 1420 670 / 670 Balance 1420 / 1420 670 / 670 Discharge Diet: No Restrictions Discharge Activity: Return to Normal Activity Home Medications: Medications to take at Discharge Pramipexole Di-HCl [Mirapex] 0.25 mg PO BID #10 tablet 10/20/18 Following Prescrptions Were Given to Patient: Pramipexole Di-HCl [Mirapex] 0.25 mg PO BID #10 tablet Primary Care Physician: Belkys Vázquez NP-C [Primary Care Provider] - When: Dr Harish Spence within 2 weeks of discharge Disposition: Home Minutes spent on discharge:: 40 Patient Condition:: Stable Medical Necessity - Tobacco Use Smoking Status: Current every day smoker Tobacco Use: Cigarettes Meaningful Use Info Meaningful Use Diagnoses (Choose all that apply): None applicable Code Visit Inpatient E&M: 04887 Disch Hosp
--- NOTE | 2018-10-20 09:39 | DCINST_ITS ---
- Discharge Diagnoses Current Active Problems: Current Active and Chronic Problems (Last Updated 04/18/18 @ 14:55 by Tian Torres DO) Drug abuse (Chronic) Depression (Chronic) Hepatitis C (Chronic) Reason(s) for Visit for Discharge Instructions: Acute opiate withdrawal You will use the following diet at home:: Regular Your food should be the consistency of: Regular Your liquids should be the consistency of: Regular/Thin Discharge Activity: Return to Normal Activity Additional Instructions: You have been advised to quit using illicit drugs and smoking. Follow-up with your outpatient program as planned. Allergies/Adverse Reactions: Allergies codeine Allergy (Verified 04/18/18 15:41) Swelling/difficulty breathing fish derived Allergy (Verified 04/18/18 15:41) Swelling/difficulty breathing Iodinated Contrast- Oral and IV Dye [CONTRASTS] Allergy (Verified 04/18/18 15:41) Swelling/difficulty breathing shellfish derived Allergy (Verified 04/18/18 15:41) Swelling/difficulty breathing Medications to take at Discharge NK 10/17/18 Primary Care Physician: Belkys Vázquez, CALKER-C [Primary Care Provider] - Test Results: Test results from this visit will be discussed in further detail at your follow- up appointment, if applicable. When: Dr Harish Spence within 2 weeks of discharge Proposed Discharge Date: 10/20/18
[2018-10-20] MEDS: Pramipexole Di-HCl 0.25 MG Tablet PO (10:33)
== END 2018-10-20 12:00 | disposition home or self-care (01) | DRG 773 ==
PROVIDERS: Admitting Provider Hospitalist; Family Provider Nurse Practitioner Family; PCP Nurse Practitioner Family; Referring Provider Hospitalist; Visit Provider Internal Medicine
DX: F11.23 Opioid dependence with withdrawal (principal); F17.210 Nicotine dependence, cigarettes, uncomplicated; F32.9 Major depressive disorder, single episode, unspecified; B18.2 Chronic viral hepatitis C
CPT/HCPCS: 36415; 80053; 80307; 80320; 84703; 85025; 97802; 99218; 99406; G0378; G0379; G0480